=== PATIENT | male | born 1955 | race Caucasian/White ===

== ENCOUNTER 2016-11-10 08:26 | Day surgery (SDC) | payer OTHER ==
[~2016-11-10] VITALS: Ht 190.5 cm; Wt 123.8 kg
[~2016-11-10 08:26] MED LIST: ASPI-973 PO; CHOL400T PO; CYAN100T PO; GABA-502 PO; KORE100C PO; LITH300T2 PO; LOSA100T29 PO; PROP20TA5 PO; SERT100T9 PO; TRAZ150T72 PO
[2016-11-10] MEDS ORDERED: fentaNYL-PF 50 mCg/mL 2 mL Inj ONE (08:27)
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
[2016-11-10 08:42] VITALS: BP 177/103; PULSE 88; RESP 16; O2SAT 95
[2016-11-10] MEDS ORDERED: Lactated Ringer's 1,000 ML IV ONE (09:39)
[2016-11-10] MEDS ORDERED: Lactated Ringer's 1,000 ML IV SCH (09:41)
[2016-11-10] MEDS ORDERED: Ondansetron 2 mg/mL 2 mL Inj IVPUSH PRN (09:45)
[2016-11-10] MEDS ORDERED: MetoCLOpramide 5 mg/mL 2 mL Inj IVPUSH PRN (09:45)
[2016-11-10 10:10] VITALS: BP 142/81; PULSE 79; RESP 16; O2SAT 92
[2016-11-10 10:20] VITALS: BP 158/82; PULSE 72; RESP 16; O2SAT 92
[2016-11-10 10:30] VITALS: BP 159/94; PULSE 82; RESP 16; O2SAT 95
--- NOTE | 2016-11-10 10:47 | ENDO ---
[address] [address] ENDOSCOPY PROCEDURE PATIENT: JET BAI : 1955 MR#: [id number] ADMIT: 11/10/2016 JOB ID: [id number] DATE: PROCEDURE: Colonoscopy. INDICATION: Change in bowel habits. ASA CLASSIFICATION, MALLAMPATI SCORE, AND MEDICATIONS: Please see José Albarado's anesthesia report. INSTRUMENT USED: PCF H 190 AL. PREPARATION QUALITY: Fair. PROCEDURE DETAILS: After informed consent was obtained, the patient was brought to the GI suite, where he was placed on oxygen via nasal cannula and monitored with continuous pulse oximeter, telemetry and blood pressure monitoring. A time-out was performed. Then, he was placed in a left lateral decubitus position and medications were administered for sedation. Digital rectal exam with palpation of the prostate was performed, which was unremarkable. The colonoscope was then inserted into the rectum and advanced under direct visualization to the terminal ileum, which was identified by the presence of the ileocecal valve and villous appearing mucosa at the terminal ileum. Once the terminal ileum was reached, the colonoscope was withdrawn back into the rectum as the mucosa and lumen were examined. In the rectum, retroflexion was performed. Following retroflexion, remaining air in the rectum was suctioned, and procedure was completed. FINDINGS: 1. Normal appearing terminal ileum. Multiple random biopsies were obtained. 2. In the transverse colon, there were five polyps ranging from diminutive to approximately 6 mm. The polyps were removed with a combination of hot snare and cold biopsy forceps. 3. Random biopsies were obtained throughout the entire colon. 4. Scattered diverticula were seen extending from the distal transverse colon to the sigmoid colon. 5. Retroflexed views in the rectum revealed small internal hemorrhoids. IMPRESSION: 1. Five transverse colon polyps. 2. Left-sided diverticulosis. 3. Internal hemorrhoids. RECOMMENDATIONS: 1. Await pathology results. 2. Follow up in GI clinic in 2-4 weeks. 3. Avoid NSAIDs and anticoagulants for 72 hours. 4. Fiber rich diet. COMPLICATIONS: None. ESTIMATED BLOOD LOSS: Less than 5 mL.
--- NOTE | 2016-11-10 14:09 | PCM.ANEP2 ---
Post Anesthesia Evaluation ASA/CMS Post Anesthesia VS in Patient's Normal Range?: Yes Resp Stable; Airway Patent?: Yes CV Function & Hydration Stable: Yes Mental Status Recovered?: Yes Pain control Satisfactory?: Yes N/V Control Satisfactory?: Yes José Albarado MD Nov 10, 2016 14:09
--- NOTE | 2016-11-10 14:09 | PCM.ANEP1 ---
Post Anesthesia Phase 1 PACU Phase 1 Assessment Vital Signs Vital Signs Date Time Temp Pulse Resp B/P Pulse Ox O2 Delivery O2 Flow Rate FiO2 11/10/16 10:30 82 16 159/94 95 Room Air 11/10/16 10:20 72 16 158/82 92 Room Air 11/10/16 10:10 79 16 142/81 92 Room Air 11/10/16 08:42 36.3 88 16 177/103 95 Room Air Anesthetic Administered: MAC Level of Alertness: Awake, talking GARCIA's with Equal Strength: Yes Pain: No Nausea or Vomiting: No Oxygen Delivery: Nasal Cannula Lungs: Clear to Auscultation, Normal Air Movement Dermatome Level: Full Sensation José Albarado MD Nov 10, 2016 14:09
--- NOTE | 2016-11-11 15:23 | PATH ---
SURGICAL PATHOLOGY Attending Physician:Guille Schaefer CASE STATUS: Signed Out PATIENT NAME: JET BAI PID: [id number] : 1955 DATE COLLECTED:11/10/2016 16:29 SPECIMEN: 1: Colon, Biopsy 2: Ileum, Biopsy 3: Colon, Biopsy CLINICAL HISTORY: A: TRANSVERSE COLON POLYPS X5 B: TERMINAL ILEUM BIOPSY C: RANDOM COLON BIOPSY FINAL DIAGNOSIS: 1.TRANSVERSE COLON POLYPS: TUBULAR ADENOMAS, MULTIPLE FRAGMENTS. FIVE POLYPS REMOVED. 2.TERMINAL ILEUM BIOPSY: SMALL BOWEL MUCOSA WITH NO DIAGNOSTIC ALTERATIONS. Negative for inflammation, dysplasia and malignancy. 3.RANDOM COLON BIOPSY: NORMAL COLONIC MUCOSA. Negative for inflammation, dysplasia and malignancy. ICD10 code D12.3 GROSS DESCRIPTION: The specimen is received in three formalin filled containers labeled with the patient's name. 1). The specimen is sublabeled "transverse colon polyps X5" and consists of multiple portions of tissue which aggregate to 0.5 x 0.5 x 0.4 CM. The specimen is entirely submitted in cassette 1A. 2). The specimen is sublabeled "terminal ileum" and consists of 2 portions of tissue which aggregate to 0.3 x 0.3 x 0.2 CM. The specimen is entirely submitted in cassette 2A. 3). The specimen is sublabeled "random colon" and consists of multiple portions of tissue which aggregate to 0.6-0.6 x 0.2 CM. The specimen is entirely submitted in cassette 3A. 11/10/2016 DAC MICRO DESCRIPTION: See diagnosis. ICD-9 CODES: CPT CODES: 1: 38511 2: 41614 3: 29774 Electronically Signed Out Kayleigh Madrid MD [facility] [address], [place] [address] Technical component performed at [facility], [facility] [address], [address]
== END 2016-11-10 23:59 | disposition home or self-care (01) ==
LOC: END 08:26
PROVIDERS: ATTEND Internal Medicine Gastroenterology
DX: D12.3 Benign neoplasm of transverse colon (principal); R19.4 Change in bowel habit; K57.30 Diverticulosis of large intestine without perforation or abscess without bleeding; K64.8 Other hemorrhoids; Z80.0 Family history of malignant neoplasm of digestive organs; F43.10 Post-traumatic stress disorder, unspecified; Z79.82 Long term (current) use of aspirin
CPT/HCPCS: 45380; 45385; J7120